=== PATIENT | female | born 2005 | race Caucasian/White ===

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

== ENCOUNTER → 2024-06-24 | Outpatient (CLI) | payer OTHER, SELFPAY ==
--- NOTE | 2024-06-24 11:40 | RAD_ITS ---
EXAM: XR BILATERAL HIPS WITH PELVIS WHEN PERFORMED, 5 VIEWS CLINICAL INDICATION: PAIN HIP AND BACK TECHNIQUE: Frontal view of the pelvis, 2 views each of bilateral hips. COMPARISON: No relevant prior studies available. FINDINGS: BONES/JOINTS: Unremarkable. No displaced fracture. No destructive or sclerotic lesions. Note that overlapping bowel shadows may however obscure fine detail. Sacroiliac joint is unremarkable. No widening of the pubic symphysis. The articular structures are unremarkable. SOFT TISSUES: Unremarkable. No soft tissue swelling or gas. OTHER: Moderate stool in the rectum. RAD/Hips B/L min 2 views w/ Pelvis IMPRESSION: No evidence of displaced pelvic or hip fracture. Electronically Signed: Jeanine Logan MD at 20:00 EDT ,
--- NOTE | 2024-06-24 11:40 | RAD_ITS ---
EXAM: XR LUMBOSACRAL SPINE, 4 OR 5 VIEWS CLINICAL INDICATION: PAIN HIP AND BACK TECHNIQUE: Frontal, lateral and bilateral oblique views of the lumbar spine. COMPARISON: No relevant prior studies available. FINDINGS: VERTEBRAE: Unremarkable. Preserved vertebral body height. No fracture. No spondylolisthesis. Preservation of the normal lumbar lordosis. No significant facet arthropathy. Intact SI joints. DISC SPACES: Mild disc space narrowing at L5-S1 compared to L4-5. GASTROINTESTINAL TRACT: Moderate stool in the rectum, mild stool in the right colon and descending colon. No dilated small bowel. RAD/L/S Spine Min 4 Views IMPRESSION: Mild L5-S1 disc space narrowing, uncertain chronicity. No evidence of lumbar spinal fracture or spondylolisthesis. Moderate rectal stool. Electronically Signed: Jeanine Logan MD at 19:57 EDT ,
== END | disposition home or self-care (01) ==
LOC: MTRAD 11:39
PROVIDERS: PCP Family Medicine; Referring Provider Nurse Practitioner Family; Visit Provider Nurse Practitioner Family
DX: M54.50 Low back pain, unspecified (principal); M25.551 Pain in right hip; M25.552 Pain in left hip
CPT/HCPCS: 72110; 73521